=== PATIENT | male | born 1970 | race Caucasian/White ===

== ENCOUNTER 2023-07-13 15:58 | Emergency (ER) | payer SELFPAY ==
[2023-07-13 16:07] VITALS: BP 146/104
--- NOTE | 2023-07-13 16:31 | ED.GENMED ---
History of Present Illness
General
Chief Complaint: Musculo-Skeletal Complaint
Source: patient and police
Exam Limitations: none
Time Seen by Provider: 07/13/23 16:16
Nursing documentation reviewed up to this point in time: agreed with
Travel History
Have you had any contact with someone who has COVID-19?: No
Do you have any symptoms of coronavirus? Fever > 100 degrees, chills, cough, shortness of breath, sore throat, loss of taste or smell, muscle aches, or headache?: No
History of Present Illness
History of Present Illness:
52-year-old male presents to the emergency department complaining of right shoulder blade pain that began after he was put in the back of a police car. The pain does radiate to his back. It hurts when he moves or takes a deep breath. No trauma.
He is brought in by police.
Past History
Past History
ED Past Medical History: None (Has not seen a doctor for 5 years)
ED Past Surgical History: Orthopedic (Carpal tunnel)
Social History
Tobacco: Non-smoker
Alcohol: None
Drug: None
Employment: Employed
Review of Systems
Review of Systems
Allergies reviewed?: Yes
All Other Systems: Not applicable
Constitutional: Reports no symptoms
EENT: Reports no symptoms
Respiratory: Reports no symptoms
Cardiac: Reports chest pain
ABD/GI: Reports no symptoms
: Reports no symptoms
Musculoskeletal: Reports back pain
Skin: Reports no symptoms
Neurological: Reports no symptoms
Endocrine: Reports no symptoms
Hematologic/Lymphatic: Reports no symptoms
Psychiatric: Reports no symptoms
Phy Exam
Physical Exam
Physical Exam:
Physical Exam
General: no apparent distress, not acutely ill
Neck: supple. no meningeal signs. normal posterior pharynx
Heart: s1/s2 regular rate and rhythm, no murmur. equal radial
pulses.
HEENT: Pupils equal round reactive to light, EOMI
Lungs: no acute respiratory distress. clear bilaterally, right posterior rib pain, tender to palpation, reproducing pain
Abdomen: normal bowel sounds. not tender. no CVAT
Neuro: alert and oriented. no focal neurological deficits cranial nerves II through XII intact
Skin: no rash
Psychiatric: well kept. interactive and cooperative
Extremities: no edema. no calf tenderness. negative homans. good distal pulses
Course
Orders/Labs/Results
Orders:
Orders
07/13/23 16:30
CR Chest - 2 Views Urgent
Comment:
Reason For Exam: right side posterior chest pain
07/13/23 16:31
Electrocardiogram (*1) Urgent
Reason for Study: Shortness of Breath
EKG- Treatment ONCE
IV Insert/Care/Rem.- Treatment PRN
07/13/23 16:40
Complete Blood Count/With Diff Urgent
Comprehensive Metabolic Panel Urgent
D-Dimer Urgent
Troponin I Urgent
Abnormal Lab Results
07/13/23
16:40
Abs Immat Gran (auto) 0.1 H 10^3/uL
(0-0.05)
Immature Gran % 0.7 H %
(0-0.5)
Creatinine 0.6 L mg/dL
(0.7-1.3)
Glucose 115 H mg/dl
(70-99)
07/13/23 16:40
07/13/23 16:40
Vital Signs
Initial and Last Documented VS:
Initial Vital Signs
Temp Pulse Resp BP Pulse Ox
98.6 F 87 18 146/104 97
07/13/23 16:07 07/13/23 16:07 07/13/23 16:07 07/13/23 16:07 07/13/23 16:07
Last Documented Vital Signs
Temp Pulse Resp BP Pulse Ox
98.6 F 87 18 146/104 97
07/13/23 16:07 07/13/23 16:07 07/13/23 16:07 07/13/23 16:07 07/13/23 16:07
MDM/Problems Addressed
Differential Diagnosis Includes:
Pneumonia, aortic aneurysm, pulmonary embolism
MDM/Problems Addressed:
52-year-old male presents emergency department due to right shoulder pain. It appears musculoskeletal on exam, negative troponin, D-dimer and EKG. Stable for discharge. Follow-up with [place] [facility].
*Radiology
Radiology exam reviewed: preliminary read by ED provider (Chest x-ray no acute findings)
*Pulse Oximetry
Patient hypoxic: no
*EKG
Interpreted by ED Provider?: Yes
EKG Intrepretation Date: 07/13/23
EKG Intrepretation Time: 17:18
Interpretation: normal
Comparison EKG: no comparison EKG present
Heart Rate: 84
Rate: normal
Rhythm: sinus
[place]: normal axis
Interval: normal interval
QRS Pattern: normal QRS
Ischemia: no ischemia
*Contract Writer Interpretation
Rate: normal
Interpretation: normal
Heart Rate: 86
Rhythm: sinus
*Critical Care Note
Total Time (30-74mins, 75-104mins- exclusive of procedures): Not Applicable
Patient Management
Social determinants of health affecting care: Strong social support
Escalation/DeEscalation of care consider admission/obs:
Admit not indicated
ED Attending Note
-
Portions of this chart may have been created with voice recognition software.� Occasional wrong word or��sound alike� substitutions may have occurred due to the inherent limitations of voice recognition software.
Discharge Plan
Departure
Patient Disposition: Home (Routine Discharge)
Date of Disposition: 07/13/23
Time of Disposition: 18:56
Patient with high blood pressure during this ER visit?: Yes
Condition: Good
Discharge Problem:
Acute pain of right shoulder
Instructions: Muscle and Bone Pain (DC), BLOOD PRESSURE
Referrals:
UNKNOWN - PT DOES,NOT KNOW [Family Provider] -
Activity Restrictions/Additional Instructions:
Tylenol 650 mg every 4 hours for pain, ibuprofen 600 mg every 6 to 8 hours for pain. [facility] with [facility].
Interventions
Interventions:
*Risk Screen - Suicide Last Done: 07/13/23 16:00
*General Assessment Last Done: 07/13/23 16:00
*Neglect/Abuse Screening Last Done: 07/13/23 16:00
*ED COVID-19 Vaccine History Last Done: 07/13/23 16:06
ED-Musculoskeletal Assessment Last Done: 07/13/23 16:05
Discharge Date and Time
Print Language: AUSTRIAN
[2023-07-13 16:52] LABS: % Basophils 0.5 % (0-2); % Eosinophils 1.4 % (0-6); % Immature Granulocytes 0.7 % (0-0.5); % Lymphocytes 20.6 % (20.5-51.1); % Neutrophils 69.8 % (42.2-75.2); Absolute Eosinophils 0.1 10^3/uL (0-0.7); Absolute Immature Granulocytes 0.1 10^3/uL (0-0.05); Absolute Lymphocytes 1.8 10^3/uL (1.2-3.4); Absolute Monocytes 0.6 10^3/uL (0.1-0.6); Hematocrit 47.1 % (39.0-52.0); Hemoglobin 16.6 g/dL (13.0-18.0); Mean Corp Hgb Conc. 35.2 g/dL (33.0-37.0); Nucleated Red Blood Cells % 0 % (-); Platelet Count 320 10^3/uL (130-400); Red Blood Cell Count 5.54 10^6/uL (4.70-6.10); Red Cell Dist. Width 12.2 % (11.5-14.5); White Blood Cell Count 8.5 10^3/uL (4.8-10.8)
[2023-07-13 17:05] LABS: D-Dimer 0.28 ug/mlFEU (0.00-0.50)
[2023-07-13 17:13] LABS: ALT (SGPT) 23 U/L (0-50); AST (SGOT) 22 U/L (17-59); Albumin 4.4 g/dl (3.5-5.0); Alkaline Phosphatase 82 U/L (38-126); Blood Urea Nitrogen 9 mg/dl (9-20); Calcium 9.3 mg/dl (8.4-10.2); Carbon Dioxide 30 mmol/L (22-30); Chloride 102 mmol/L (98-107); Glucose 115 mg/dl (70-99); Potassium 4.3 mmol/L (3.5-5.1); Sodium 138 mmol/L (135-145); Total Bilirubin 0.9 mg/dl (0.2-1.3); Total Protein 7.2 g/dl (6.3-8.2); eGFR > 60.00
[2023-07-13 17:24] LABS: Troponin I < 0.012 ng/ml
== END 2023-07-13 19:27 | disposition home or self-care (01) ==
LOC: EMR 15:58
PROVIDERS: EMERGENCY PHYSICIAN Emergency Medicine
DX: M25.511 Pain in right shoulder (principal); M54.9 Dorsalgia, unspecified; R07.89 Other chest pain; R03.0 Elevated blood-pressure reading, without diagnosis of hypertension; Z65.3 Problems related to other legal circumstances
CPT/HCPCS: 99283; 71046; 80053; 84484; 85025; 85379; 93005